=== PATIENT | male | born 1990 | race Caucasian/White ===

== ENCOUNTER 2018-03-02 23:28 | Emergency (ER) | payer OTHER ==
[~2018-03-02 23:28] MED LIST: DICY-42 PO; HYDR-4309 PO
--- NOTE | 2018-03-02 23:48 | ER Report ---
History and Physical Time Seen By MD: 23:48 Hx. of Stated Complaint: PATIENT HAD AN ICD PUT IN ON THE January, PATIENT HAVING PAIN IN LEFT CHEST, INTO LEFT SHOULDER, AND LEFT ARM. PATIENT HAVING SOME SHORTNESS OF BREATH. HPI/ROS CHIEF COMPLAINT: Pain over surgical ICD site HISTORY OF PRESENT ILLNESS: This is a 27-year-old male. He had an implanted cardiac defibrillator placed on February 13. He has been having pain at the surgical site. Had been taking some oxycodone for this but is out of that pain medicine now. And felt like the pain should've improved by now. He has had a little bit of shortness of breath. Pain mainly along the central area of the chest just to the left of the sternum. Sharp in quality. Pain does go up into his shoulder. This is over the area of the recent surgery. Denies any cough or fever. No nausea or vomiting. He has found himself waking up with his arm over his head, he has been trying to make sure he does not put his arm over his head while this area heals. Occasional heart racing. ICD placed due to Brugada Syndrome. Allergies: Coded Allergies: No Known Drug Allergies (Unverified , 12/24/15) Home Meds Active Scripts Oxycodone Hcl (OXYCODONE HCL) 5 Mg Tablet, 5 MG PO Q4H Y for PAIN, #15 TAB 0 Refills Prov:ISHA HUBBARD MD 03/03/18 Discontinued Scripts Dicyclomine Hcl (BENTYL) 10 Mg Capsule, 1-2 TAB PO QID Y for crampy abdominal pain reilef, #60 CAPSULE Prov:DEANNE PURCELL DO 12/24/15 Hydrocodone Bit/Acetaminophen (NORCO 5-325 TABLET) 1 Each Tablet, 1 EACH PO Q4H Y for PAIN, #12 TAB Prov:DEANNE PURCELL DO 12/24/15 Reviewed Nurses Notes: Yes Hx Smoking: Yes Smoking Status: Former Smoker Exposure to Second Hand Smoke?: No Hx Substance Use Disorder: No Constitutional Vital Sign - Last 24 Hours 03/02/18 03/02/18 03/03/18 03/03/18 23:32 23:43 00:13 00:28 Temp 97.9 Pulse 92 93 93 94 Resp 19 21 16 11 B/P (MAP) 148/102 Pulse Ox 93 93 91 89 O2 Delivery Room Air 03/03/18 03/03/18 00:43 01:09 Pulse 91 85 Resp 20 16 B/P (MAP) 132/85 (101) Pulse Ox 91 95 O2 Delivery Room Air Physical Exam General Appearance: The patient is alert, has no immediate need for airway protection and no current signs of toxicity. [ ] Eyes: Pupils equal and round no injection. ENT: Normal oral mucosa. Moist mucous membranes. Neck: Neck is supple and non tender. Respiratory: Lungs clear to auscultation. He does have tenderness over the whole area of the left upper chest where his implantable cardiac defibrillator was placed. Cardiac: regular rate and rhythm Musculoskeletal: Tenderness with palpating the chest wall. No other musculoskeletal pain in the neck or back. Skin: Incision healing well. No fluctuant pockets or signs of abscess. DIFFERENTIAL DIAGNOSIS: After history and physical exam differential diagnosis was considered for pain after having ICD placed. This appears postsurgical and musculoskeletal but will check for signs of infection, electrolyte abnormality, and change in or possible problem with placement of the AICD. Medical Decision Making Data Points Result Diagram: 03/02/18 2339 03/02/18 2339 Laboratory Hematology Test 03/02/18 23:39 03/02/18 23:59 Red Blood Count 5.35 M/uL (4.00-5.60) Mean Corpuscular Volume 87.6 fL (80.0-96.0) Mean Corpuscular Hemoglobin 31.8 pg (26.0-33.0) Mean Corpuscular Hemoglobin Concent 36.3 g/dL (32.0-36.0) Red Cell Distribution Width 12.5 % (11.5-14.5) Mean Platelet Volume 10.0 fL (7.2-11.1) Neutrophils (%) (Auto) 47.1 % (39.4-72.5) Lymphocytes (%) (Auto) 42.8 % (17.6-49.6) Monocytes (%) (Auto) 8.5 % (4.1-12.4) Eosinophils (%) (Auto) 1.2 % (0.4-6.7) Basophils (%) (Auto) 0.4 % (0.3-1.4) Nucleated RBC Relative Count (auto) 0.1 /100WBC Neutrophils # (Auto) 4.9 K/uL (2.0-7.4) Lymphocytes # (Auto) 4.5 K/uL (1.3-3.6) Monocytes # (Auto) 0.9 K/uL (0.3-1.0) Eosinophils # (Auto) 0.1 K/uL (0.0-0.5) Basophils # (Auto) 0.0 K/uL (0.0-0.1) Nucleated RBC Absolute Count (auto) 0.01 K/uL Sodium Level 139 mmol/L (137-145) Potassium Level 3.5 mmol/L (3.5-5.0) Chloride Level 98 mmol/L (98-107) Carbon Dioxide Level 29 mmol/L (22-30) Blood Urea Nitrogen 14 mg/dl (9-21) Creatinine 0.70 mg/dl (0.66-1.25) Glomerular Filtration Rate Calc > 60.0 Random Glucose 108 mg/dl (75-110) Calcium Level 9.2 mg/dl (8.4-10.2) Total Bilirubin 0.6 mg/dl (0.2-1.3) Aspartate Amino Transf (AST/SGOT) 37 U/L (0-35) Alanine Aminotransferase (ALT/SGPT) 48 U/L (0-56) Alkaline Phosphatase 92 U/L (0-126) Total Protein 7.7 g/dl (6.3-8.2) Albumin 4.7 g/dl (3.5-5.0) Troponin I < 0.012 ng/ml Chemistry Test 03/02/18 23:39 03/02/18 23:59 White Blood Count 10.4 k/uL (4.5-11.0) Red Blood Count 5.35 M/uL (4.00-5.60) Hemoglobin 17.0 g/dL (14.0-18.0) Hematocrit 46.8 % (42.0-52.0) Mean Corpuscular Volume 87.6 fL (80.0-96.0) Mean Corpuscular Hemoglobin 31.8 pg (26.0-33.0) Mean Corpuscular Hemoglobin Concent 36.3 g/dL (32.0-36.0) Red Cell Distribution Width 12.5 % (11.5-14.5) Platelet Count 175 K/uL (150-450) Mean Platelet Volume 10.0 fL (7.2-11.1) Neutrophils (%) (Auto) 47.1 % (39.4-72.5) Lymphocytes (%) (Auto) 42.8 % (17.6-49.6) Monocytes (%) (Auto) 8.5 % (4.1-12.4) Eosinophils (%) (Auto) 1.2 % (0.4-6.7) Basophils (%) (Auto) 0.4 % (0.3-1.4) Nucleated RBC Relative Count (auto) 0.1 /100WBC Neutrophils # (Auto) 4.9 K/uL (2.0-7.4) Lymphocytes # (Auto) 4.5 K/uL (1.3-3.6) Monocytes # (Auto) 0.9 K/uL (0.3-1.0) Eosinophils # (Auto) 0.1 K/uL (0.0-0.5) Basophils # (Auto) 0.0 K/uL (0.0-0.1) Nucleated RBC Absolute Count (auto) 0.01 K/uL Glomerular Filtration Rate Calc > 60.0 Calcium Level 9.2 mg/dl (8.4-10.2) Total Bilirubin 0.6 mg/dl (0.2-1.3) Aspartate Amino Transf (AST/SGOT) 37 U/L (0-35) Alanine Aminotransferase (ALT/SGPT) 48 U/L (0-56) Alkaline Phosphatase 92 U/L (0-126) Total Protein 7.7 g/dl (6.3-8.2) Albumin 4.7 g/dl (3.5-5.0) Troponin I < 0.012 ng/ml EKG/Imaging EKG Interpretation 12 lead EKG: Rhythm: normal sinus rhythm, rate 93 [place]: normal QRS: normal ST segments: normal I do not see any changes consistent with Brugada at this time on his EKG Imaging CHEST PA AND LAT HISTORY: Left-sided chest pain. Recent ICD placement. COMPARISON: None. TECHNIQUE: PA and lateral views of the chest. FINDINGS: Tubes/lines/hardware: ICD generator projects at the left mid to upper chest, and single lead terminates in the right ventricle. Pulmonary: Lungs are clear. There is no pneumothorax or pleural effusion. Cardiomediastinal: Cardiac and mediastinal silhouettes are within normal limits. Bones/soft tissues: No acute osseous abnormality. The visible abdomen is normal. IMPRESSION: 1. No acute cardiopulmonary process. 2. ICD has an unremarkable appearance. Report Dictated By: Henna Harrington at 03/03/2018 12:29 AM ED Course/Re-evaluation ED Course Slight improvement with oxycodone 10 mg immediate release tablets. No problems noted on labs, EKG or chest x-ray. Recommended that the patient follow-up with his surgeon/delivery manager. We'll provide some oxycodone to use for pain over the weekend. Decision to Disposition Date: Mar 03, 2018 Decision to Disposition Time: 00:59 Depart Departure Latest Vital Signs Vital Signs Date Time Temp Pulse Resp B/P (MAP) Pulse Ox O2 Delivery O2 Flow Rate FiO2 03/03/18 01:09 85 16 132/85 (101) 95 Room Air 03/02/18 23:32 97.9 Impression: Primary Impression: Chest wall pain following surgery Condition: Improved Disposition: HOME OR SELF-CARE New Scripts Oxycodone Hcl (OXYCODONE HCL) 5 Mg Tablet 5 MG PO Q4H Y for PAIN, #15 TAB 0 Refills Prov: ISHA HUBBARD MD 03/03/18 Patient Instructions: Chest Wall Pain (ED) Additional Instructions: No problems were noted on evaluation tonight. We suspect that the pain is from the chest wall from the surgery and healing process. Take Oxycodone 5mg tablets, one every 4hours as needed for pain. ISHA HUBBARD MD Mar 02, 2018 23:48
--- NOTE | 2018-03-02 23:52 | EKG ---
FACILITY: PATIENT NAME: EL BRODY : [id number] MR: [id number] V: [id number] EXAM DATE: ORDERING PHYSICIAN: ISHA HUBBARD TECHNOLOGIST: YONNY Chandra Reason : CHEST PAIN Blood Pressure : / mmHG Vent. Rate : 093 BPM Atrial Rate : 093 BPM P-R Int : 182 ms QRS Dur : 108 ms QT Int : 352 ms P-R-T Axes : 069 066 061 degrees QTc Int : 437 ms Normal sinus rhythm Normal ECG No previous ECGs available Confirmed by WHITNEY BURR ([id number]) on 03/03/2018 1:02:57 AM Referred By: Confirmed By:WHITNEY BURR
[2018-03-03] LABS: PLATELET COUNT, AUTOMATED 175 K/uL (150-450)
--- NOTE | 2018-03-03 00:35 | RADIOLOGY IMAGING REPORT ---
FACILITY: PATIENT NAME: Eliezer Thorne : 1990 MR: [id number] V: [id number] EXAM DATE: [id number] ORDERING PHYSICIAN: ISHA HUBBARD TECHNOLOGIST: Location: [facility] Patient: Eliezer Thorne : 1990 Visit/Account:[id number] Date of Sevice: 03/02/2018 CHEST PA AND LAT HISTORY: Left-sided chest pain. Recent ICD placement. COMPARISON: None. TECHNIQUE: PA and lateral views of the chest. FINDINGS: Tubes/lines/hardware: ICD generator projects at the left mid to upper chest, and single lead terminat es in the right ventricle. Pulmonary: Lungs are clear. There is no pneumothorax or pleural effusion. Cardiomediastinal: Cardiac and mediastinal silhouettes are within normal limits. Bones/soft tissues: No acute osseous abnormality. The visible abdomen is normal. IMPRESSION: 1. No acute cardiopulmonary process. 2. ICD has an unremarkable appearance. Report Dictated By: Henna Harrington at 03/03/2018 12:29 AM Report E-Signed By: Henna Harrington at 03/03/2018 12:30 AM WSN:[id number]
[2018-03-03] MEDS ORDERED: oxyCODONE HCL 5 MG CAP PO ONE ×2 (01:00)
[2018-03-03] MEDS ORDERED: OXYC5TAB38 PO (01:00)
[2018-03-03 01:09] VITALS: BP 132/85
== END 2018-03-03 01:19 | disposition home or self-care (01) ==
LOC: ER 23:39
DX: R07.89 Other chest pain (principal)
CPT/HCPCS: 71046; 82040; 82247; 82310; 82374; 82435; 82565; 82947; 84075; 84132; 84155; 84295; 84450; 84460; 84484; 84520; 85025; 93005; 99284

== ENCOUNTER → 2018-08-07 | Outpatient (CLI) | payer OTHER ==
[~2018-08-07] MED LIST changes: -HYDR-4309 PO; +HYDR-653 PO; +OXYC5TAB38 PO
== END ==
LOC: US 07:02
PROVIDERS: ATTEND Internal Medicine Cardiovascular Disease
DX: I47.2 Ventricular tachycardia (principal)
CPT/HCPCS: 93306

== ENCOUNTER 2018-08-27 07:20 | Observation (INO) | payer SELFPAY ==
[~2018-08-27] VITALS: Ht 190.5 cm; Wt 105.7 kg
[2018-08-27] MEDS ORDERED: OXCA150T64 PO (07:32)
[2018-08-27] MEDS ORDERED: ARIP30TA10 PO (07:32)
[2018-08-27] MEDS ORDERED: FLUO-177 PO (07:32)
--- NOTE | 2018-08-27 07:40 | ER Report ---
History and Physical Time Seen By MD: 07:39 Hx. of Stated Complaint: nausea, black stools and some bright red bleeding since yesterday. has history of cancerous polyps removed. HPI/ROS CHIEF COMPLAINT: Nausea, abdominal pain, bright red blood per rectum HISTORY OF PRESENT ILLNESS: Patient is a 28-year-old male who resents to the emergency department for abdominal pain that began last evening along with severe nausea without emesis. And reports having black tarry stools as well as bright red blood per rectum. She has a history of "cancerous polyps removed on colonoscopy" this was done for similar presentation to today. Past medical history also significant for Brugada syndrome status post ICD placement. Patient denies any history of familial polyposis. States he was in usual state of health until last evening. Patient denies any other abdominal surgeries. As meal was yesterday. She denies fevers or chills. REVIEW OF SYSTEMS: Constitutional: No fever, no chills. Eyes: No discharge. ENT: No sore throat. Cardiovascular: No chest pain, no palpitations. Respiratory: No cough, no shortness of breath. Gastrointestinal: No abdominal pain, severe nausea and no vomiting. Bright red blood per rectum with bowel movement this morning. Genitourinary: No hematuria. Musculoskeletal: No back pain. Skin: No rashes. Neurological: No headache. Allergies: Coded Allergies: No Known Drug Allergies (Unverified , 12/24/15) Home Meds Reported Medications Oxcarbazepine (OXCARBAZEPINE) 150 Mg Tablet, 50 MG PO DAILY 08/27/18 Aripiprazole (ABILIFY) 30 Mg Tablet, 30 MG PO QDAY, #10 TAB 08/27/18 Fluoxetine Hcl (FLUOXETINE HCL) 20 Mg Capsule, 150 MG PO QDAY, CAPSULE 08/27/18 Discontinued Scripts Oxycodone Hcl (OXYCODONE HCL) 5 Mg Tablet, 5 MG PO Q4H PRN for PAIN, #15 TAB 0 Refills Prov:ISHA HUBBARD MD 03/03/18 Past Medical/Surgical History History of forgot a syndrome, history of cancerous polyps status post removal which was done in [place]. Hx Smoking: Yes Smoking Status: Former Smoker Exposure to Second Hand Smoke?: No Hx Substance Use Disorder: No Constitutional Vital Sign - Last 24 Hours 08/27/18 08/27/18 08/27/1808/27/19 07:24 07:24 07:30 07:40 Temp 97.4 Pulse 120 112 Resp 18 15 B/P (MAP) 125/93 125/93 (104) 132/86 (101) Pulse Ox 90 91 O2 Delivery Room Air 08/27/18 08/27/18 08/27/18 08:00 08:20 08:20 Pulse 91 92 Resp 11 13 B/P (MAP) 118/72 (87) Pulse Ox 95 96 O2 Flow Rate 2.0 Physical Exam General/Constitutional: Patient is awake, alert, in no acute respiratory distress. Patient somewhat pale and ill-appearing Head: Normocephalic and atraumatic. Eyes: Conjunctival clear, Pupils are equal and reactive to light. Extraocular muscles are intact and symmetrical. Sclera are clear and anicteric. Ears:External canals are clear. Tympanic membranes are clear with normal landmarks and light reflex. Nares: No rhinorrhea or bleeding. Turbinates are pink and moist. Oropharyngeal: Mucous membranes are moist. There is no pharyngeal erythema or exudate. There are no palatal petechiae. Uvula is midline and symmetrical. Neck: Supple, no adenopathy. Cardiovascular: Heart is regular rate and rhythm without audible murmurs, rubs or gallops. Pulmonary: Lungs are clear to auscultation bilaterally. There are no wheezes, rales, or rhonchi. Chest rise is symmetrical Abdomen: Lower abdominal pain without guarding or rebound tenderness. Extremities: No gross deformities, No peripheral cyanosis. Able to move all 4 extremities. Neuro: Alert and oriented X3, Skin: No rashes, skin is warm dry and well perfused. Medical Decision Making Data Points Result Diagram: 08/27/18 0800 08/27/18 0800 Laboratory Hematology Test 08/27/18 08:00 Red Blood Count 5.22 M/uL (4.00-5.60) Mean Corpuscular Volume 90.8 fL (80.0-96.0) Mean Corpuscular Hemoglobin 31.1 pg (26.0-33.0) Mean Corpuscular Hemoglobin Concent 34.2 g/dL (32.0-36.0) Red Cell Distribution Width 13.3 % (11.5-14.5) Mean Platelet Volume 9.9 fL (7.2-11.1) Neutrophils (%) (Auto) 86.6 % (39.4-72.5) Lymphocytes (%) (Auto) 8.5 % (17.6-49.6) Monocytes (%) (Auto) 4.1 % (4.1-12.4) Eosinophils (%) (Auto) 0.4 % (0.4-6.7) Basophils (%) (Auto) 0.4 % (0.3-1.4) Nucleated RBC Relative Count (auto) 0.0 /100WBC Neutrophils # (Auto) 9.1 K/uL (2.0-7.4) Lymphocytes # (Auto) 0.9 K/uL (1.3-3.6) Monocytes # (Auto) 0.4 K/uL (0.3-1.0) Eosinophils # (Auto) 0.0 K/uL (0.0-0.5) Basophils # (Auto) 0.0 K/uL (0.0-0.1) Nucleated RBC Absolute Count (auto) 0.00 K/uL Prothrombin Time 13.4 seconds (12.0-14.4) Prothromb Time International Ratio 1.02 Activated Partial Thromboplast Time 31 seconds (23-35) Sodium Level 138 mmol/L (137-145) Potassium Level 4.1 mmol/L (3.5-5.0) Chloride Level 108 mmol/L (98-107) Carbon Dioxide Level 25 mmol/L (22-30) Blood Urea Nitrogen 14 mg/dl (9-21) Creatinine 0.80 mg/dl (0.66-1.25) Glomerular Filtration Rate Calc > 60.0 Random Glucose 123 mg/dl (75-110) Calcium Level 9.2 mg/dl (8.4-10.2) Total Bilirubin 1.2 mg/dl (0.2-1.3) Aspartate Amino Transf (AST/SGOT) 34 U/L (0-35) Alanine Aminotransferase (ALT/SGPT) 50 U/L (0-56) Alkaline Phosphatase 110 U/L (0-126) Total Protein 7.2 g/dl (6.3-8.2) Albumin 4.4 g/dl (3.5-5.0) Lipase 29 U/L (23-300) Chemistry Test 08/27/18 08:00 White Blood Count 10.5 k/uL (4.5-11.0) Red Blood Count 5.22 M/uL (4.00-5.60) Hemoglobin 16.2 g/dL (14.0-18.0) Hematocrit 47.4 % (42.0-52.0) Mean Corpuscular Volume 90.8 fL (80.0-96.0) Mean Corpuscular Hemoglobin 31.1 pg (26.0-33.0) Mean Corpuscular Hemoglobin Concent 34.2 g/dL (32.0-36.0) Red Cell Distribution Width 13.3 % (11.5-14.5) Platelet Count 145 K/uL (150-450) Mean Platelet Volume 9.9 fL (7.2-11.1) Neutrophils (%) (Auto) 86.6 % (39.4-72.5) Lymphocytes (%) (Auto) 8.5 % (17.6-49.6) Monocytes (%) (Auto) 4.1 % (4.1-12.4) Eosinophils (%) (Auto) 0.4 % (0.4-6.7) Basophils (%) (Auto) 0.4 % (0.3-1.4) Nucleated RBC Relative Count (auto) 0.0 /100WBC Neutrophils # (Auto) 9.1 K/uL (2.0-7.4) Lymphocytes # (Auto) 0.9 K/uL (1.3-3.6) Monocytes # (Auto) 0.4 K/uL (0.3-1.0) Eosinophils # (Auto) 0.0 K/uL (0.0-0.5) Basophils # (Auto) 0.0 K/uL (0.0-0.1) Nucleated RBC Absolute Count (auto) 0.00 K/uL Prothrombin Time 13.4 seconds (12.0-14.4) Prothromb Time International Ratio 1.02 Activated Partial Thromboplast Time 31 seconds (23-35) Glomerular Filtration Rate Calc > 60.0 Calcium Level 9.2 mg/dl (8.4-10.2) Total Bilirubin 1.2 mg/dl (0.2-1.3) Aspartate Amino Transf (AST/SGOT) 34 U/L (0-35) Alanine Aminotransferase (ALT/SGPT) 50 U/L (0-56) Alkaline Phosphatase 110 U/L (0-126) Total Protein 7.2 g/dl (6.3-8.2) Albumin 4.4 g/dl (3.5-5.0) Lipase 29 U/L (23-300) Coagulation Test 08/27/18 08:00 Prothrombin Time 13.4 seconds Prothromb Time International Ratio 1.02 Activated Partial Thromboplast Time 31 seconds EKG/Imaging Imaging FACILITY: [facility] PATIENT NAME: Eliezer Thorne : 1990 MR: [id number] V: [id number] EXAM DATE: [id number] ORDERING PHYSICIAN: SUSAN FARFAN TECHNOLOGIST: Location: [facility] [place] Patient: Eliezer Thorne : 1990 Visit/Account:[id number] Date of Sevice: 08/27/2018 CT ABDOMEN PELVIS W/ CON HISTORY: Abdominal pain and blood in stool. History of colonic polyps. TECHNIQUE: CT abdomen and pelvis with intravenous contrast. One of the following dose optimization techniques was utilized in the performa nce of this exam: Automated exposure control; adjustment of the mA and/or kV according to the patient's size; or use of an iterative reconstruction technique. Specific details can be referenced in the facility's radiology CT exam operational policy. CONTRAST: 75 mL Isovue-370 IV COMPARISON: 12/17/2015 FINDINGS: Visualized lung bases: Transvenous cardiac pacing lead within right heart. Hepatobiliary: Negative. Spleen: Negative. Adrenals: Negative. Pancreas: Negative. Kidneys/: Too small to characterize low attenuating lesion upper pole right kidney, likely cyst. GI: No obstruction, wall thickening or surrounding inflammation. Appendix well- visualized and appears normal. Vessels/spaces/nodes: Mild fat stranding and borderline adenopathy along the mesenteric root. These changes are slightly more notable than on prior exam and although they abut the pancreatic uncinate, they do not appear epicentered there. Most likely considerations include mesenteric panniculitis/sclerosing mesenteritis right is, less likely pancreatitis however correlation with lipase is suggested. No free fluid. No bulky adenopathy. No free gas. Bones/soft tissues: Very small fat-containing umbilical hernia. IMPRESSION: 1. 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 As the fat st randing does abut the pancreatic uncinate, correlation with patient's lipase is suggested to exclude any findings of concern for acute pancreatitis. This is, however, considered unlikely. 2. Otherwise unremarkable CT abdomen/pelvis without findings identified to explain patient's reported symptoms. Report Dictated By: Fito Lott MD at 08/27/2018 8:58 AM Report E-Signed By: Fito Lott MD at 08/27/2018 9:35 AM WSN:[id number] ED Course/Re-evaluation Clinical Indication for ER IV: IV Access ED Course 08/27/2018 7:51:20 am patient with history of cancerous polyps. Now with the GI bleeding. Plan at this time will be CT scan of the abdomen and pelvis we will type and screen check CBC CMP lipase. We'll also check coagulation panel. 08/27/2018 8:58:20 am nausea and pain of returned. Awaiting results of imaging study hemoglobin is 16 mg/dl however I do feel the patient is having significant GI bleed. Likely consult surgery 08/27/2018 9:21:20 am patient reports feeling better starting 2nd liter of fluid. Blood work is unremarkable. Awaiting results of CT scan 08/27/2018 10:35:[address] De La Garza regarding the patient he will come to see the patient shortly. 08/27/2018 11:02:[address] Alvarez; seen and evaluated the patient. Plan at this time will be admission for possible colonoscopy. Decision to Disposition Date: Aug 27, 2018 Decision to Disposition Time: 11:01 Depart Departure Latest Vital Signs Vital Signs Date Time Temp Pulse Resp B/P (MAP) Pulse Ox O2 Delivery O2 Flow Rate FiO2 08/27/18 08:20 92 13 118/72 (87) 96 08/27/18 08:20 2.0 08/27/18 07:24 97.4 Room Air Impression: Primary Impression: GI bleed Condition: Condition Unchanged Disposition: Admitted from ER (to Dr Alvarez) Problem Qualifiers Primary Impression: GI bleed GI bleed type/associated pathology: unspecified gastrointestinal hemorrhage type Qualified Codes: K92.2 - Gastrointestinal hemorrhage, unspecified SUSAN FARFAN MD Aug 27, 2018 07:39
[2018-08-27] MEDS ORDERED: MORPHINE 4 MG/ML SDV IVP ONE ×2 (07:45→09:00)
[2018-08-27] MEDS ORDERED: ONDANSETRON 4 MG/2 ML VIAL IVP ONE ×2 (07:45→09:00)
[2018-08-27] MEDS ORDERED: NS(*) 0.9% 1000 ML BAG 1,000 ML IV ONE ×2 (07:45→09:15)
--- NOTE | 2018-08-27 07:58 | EKG ---
FACILITY: [facility] - [place] PATIENT NAME: EL BRODY : [id number] MR: [id number] V: [id number] EXAM DATE: ORDERING PHYSICIAN: SUSAN FARFAN TECHNOLOGIST: Test Reason : pacemaker Blood Pressure : / mmHG Vent. Rate : 099 BPM Atrial Rate : 099 BPM P-R Int : 168 ms QRS Dur : 106 ms QT Int : 326 ms P-R-T Axes : 066 053 044 degrees QTc Int : 418 ms Normal sinus rhythm Normal ECG When compared with ECG of 02-MAR-2018 23:41, No significant change was found Confirmed by DWIGHT LOPEZ ([id number]) on 08/27/2018 9:35:59 AM Referred By: Confirmed By:DWIGHT LOPEZ
[2018-08-27 08:11] LABS: PLATELET COUNT, AUTOMATED 145 K/uL (150-450)
[2018-08-27 08:20] LABS: INR 1.02
--- NOTE | 2018-08-27 09:39 | RADIOLOGY IMAGING REPORT ---
FACILITY: [facility] [place] PATIENT NAME: Eliezer Thorne : 1990 MR: [id number] V: [id number] EXAM DATE: ORDERING PHYSICIAN: SUSAN FARFAN TECHNOLOGIST: Location: [facility] Patient: Eliezer Thorne : 1990 Visit/Account:[id number] Date of Sevice: 08/27/2018 CT ABDOMEN PELVIS W/ CON HISTORY: Abdominal pain and blood in stool. History of colonic polyps. TECHNIQUE: CT abdomen and pelvis with intravenous contrast. One of the following dose optimization techniques was utilized in the performance of this exam: Autom ated exposure control; adjustment of the mA and/or kV according to the patient's size; or use of an i terative reconstruction technique. Specific details can be referenced in the facility's radiology C T exam operational policy. CONTRAST: 75 mL Isovue-370 IV COMPARISON: 12/17/2015 FINDINGS: Visualized lung bases: Transvenous cardiac pacing lead within right heart. Hepatobiliary: Negative. Spleen: Negative. Adrenals: Negative. Pancreas: Negative. Kidneys/: Too small to characterize low attenuating lesion upper pole right kidney, likely cyst. GI: No obstruction, wall thickening or surrounding inflammation. Appendix well-visualized and appear s normal. Vessels/spaces/nodes: Mild fat stranding and borderline adenopathy along the mesenteric root. These changes are slightly more notable than on prior exam and although they abut the pancreatic uncinate, they do not appear epicentered there. Most likely considerations include mesenteric panniculitis/scle rosing mesenteritis right is, less likely pancreatitis however correlation with lipase is suggested. No free fluid. No bulky adenopathy. No free gas. Bones/soft tissues: Very small fat-containing umbilical hernia. IMPRESSION: 1. 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 As the fat stranding does abut the pancreatic uncinate, correl ation with patient's lipase is suggested to exclude any findings of concern for acute pancreatitis. T his is, however, considered unlikely. 2. Otherwise unremarkable CT abdomen/pelvis without findings identified to explain patient's reported symptoms. Report Dictated By: Fito Lott MD at 08/27/2018 8:58 AM Report E-Signed By: Fito Lott MD at 08/27/2018 9:35 AM WSN:[id number]
[2018-08-27] MEDS ORDERED: FLUSH 10 ML SYR IVP PRN (11:00)
[2018-08-27] MEDS ORDERED: PANTOPRAZOLE SOD(*)40 MG VIAL 80 MG in NS(*) 0.9% 100 ML BAG 100 ML IVPB ONE (11:12)
[2018-08-27 11:37] VITALS: BP 116/63
[2018-08-27] MEDS ORDERED: PANTOPRAZOLE SOD(*)40 MG VIAL 80 MG in NS(*) 0.9% 100 ML BAG 100 ML IV SCH (11:45)
[2018-08-27] MEDS: NS(*) 0.9% 1000 ML BAG 1,000 ML IV PRN (11:51)
[2018-08-27] MEDS: MORPHINE 2 MG/ML SYR IVP PRN ×5 (12:00→22:28)
[2018-08-27] MEDS ORDERED: PEG (High)/E-LYTE SOLN 4000 ML PO ONE (12:00)
--- NOTE | 2018-08-27 12:17 | Gen Surgery History & Physical ---
History of Present Illness Chief Complaint Abdominal pain, nausea, blood per rectum History of Present Illness 28-year-old gentleman presents with a one-day history of nausea, abdominal pain, and blood per rectum. He has had GI symptoms on and off for several years but has been relatively symptom-free over the last 6-8 months. Yesterday, he had a small bowel movement that contained a small amount of bright red blood but then today had a larger bowel movement which contained maroon, dark-colored stool with clots of blood and a fairly large volume. He is also had some abdominal pain in a bandlike distribution across his lower abdomen. He is also had nausea but no emesis. He does have a history of colon polyps. His 1st colonoscopy was approximately 5 years ago after he developed similar symptoms as is present complaints and he was found to have polyps which according to him or cancerous although he's never had any surgical resection. He then developed symptoms once again a couple of years after his 1st colonoscopy in another colonoscopy was completed which also revealed polyps. He was then instructed to have another colonoscopy 2 years later and this was completed a year ago where only a hemorrhoid was found and this was banded. He, to his knowledge, has never undergone genetic testing or has been told that he has a polyposis syndrome. He has no known family history of colon or rectal cancer. Currently, he's feeling a little better but he has just recently received morphine and Zofran. In total, and the last 24 hours, he's had 2 bowel movements, a small 1 yesterday and a larger one this morning. He had an ICD placed a year ago for Brugada syndrome but he reports that he has never had to be defibrillated. History Problems: (1) Brugada syndrome Status: Chronic (2) ICD (implantable cardioverter-defibrillator) in place Status: Chronic Home Meds Reported Medications Oxcarbazepine (OXCARBAZEPINE) 150 Mg Tablet, 50 MG PO DAILY 08/27/18 Aripiprazole (ABILIFY) 30 Mg Tablet, 30 MG PO QDAY, #10 TAB 08/27/18 Fluoxetine Hcl (FLUOXETINE HCL) 20 Mg Capsule, 150 MG PO QDAY, CAPSULE 08/27/18 Discontinued Scripts Oxycodone Hcl (OXYCODONE HCL) 5 Mg Tablet, 5 MG PO Q4H PRN for PAIN, #15 TAB 0 Refills Prov:ISHA HUBBARD MD 03/03/18 Allergies: Coded Allergies: No Known Drug Allergies (Unverified , 12/24/15) Patient History: FH: cancer MOTHER BROTHER OR SISTER FH: heart disease grandfather Review of Systems All Systems Reviewed/Normal: Yes, Except as Noted Gastrointestinal: Nausea, Hematochezia, Melena, Abdominal Pain Exam General Appearance: Alert, Awake, No Acute Distress, Afebrile Neuro: No Gross deficits Eyes: PERRLA GI: Other (soft, mild diffuse lower abdominal tenderness to palpation, no palpable mass or bulge.) Extremities: Warm, Perfused Psych: Alert & Oriented X3, Appropriate Mood & Affect Medical Decision Making Data Points Result Diagram: 08/27/18 0800 08/27/18 0800 Assessment and Plan Problems: (1) Melena Status: Acute Assessment & Plan: 08/27/2018: I have reviewed this patient's chart including his labs and imaging. I do not see any evidence that he is actively bleeding as he has only had 2 bowel movements, one of them small, in the last 24 hours. It is concerning, based on his history of colon polyps, that he now has recurring bleeding. I have discussed with him admitting him for further evaluation versus pursuing outpatient workup and he would like to be admitted for more acute workup. We'll go ahead and admit him, place on a clear diet today, start bowel prep, and plan on EGD and colonoscopy tomorrow. We'll follow his H&H and his rectal bleeding. We'll start him on PPI therapy to treat potential PUD. Will work on getting records from his previous colonoscopies and pathology results. If he is truly had numerous polyps removed as he claims then he may have a polyposis syndrome and may benefit from genetic testing. The mesenteric findings on CT seem to be chronic but we'll follow his abdominal pain. He doesn't really have epigastric pain and no other signs of pancreatitis but we will follow this during this admission. I have explained this plan with him in great detail and he seems to understand and seems agreeable with this plan. (2) Bright red blood per rectum Status: Acute (3) Abdominal pain Status: Acute (4) Nausea Status: Acute Condition Stable Time Spent: < 30 min Venous Thromboembolism VTE Risk Physician Assess for VTE Risk: Yes Patient's VTE Risk: Low VTE Diagnostic Test 2 Days Prior to Admit: No Antithrombotics Is Pt On Any Antithrombotics?: No Problem Qualifiers (1) Abdominal pain: Abdominal location: lower abdomen, unspecified Qualified Codes: R10.30 - Lower abdominal pain, unspecified DWIGHT ALLISON MD Aug 27, 2018 12:17
[2018-08-27] MEDS: PANTOPRAZOLE SOD(*)40 MG VIAL 80 MG in NS(*) 0.9% 100 ML BAG 100 ML IV SCH ×2 (12:57→22:28)
--- NOTE | 2018-08-27 13:10 | NUR ---
medical release form for colonoscopy, endoscopy & pathology records faxed to [facility], [facility] & [facility]
[2018-08-27 15:46] VITALS: BP 119/73
[2018-08-27 18:33] VITALS: BP 124/69
[2018-08-27] MEDS: ONDANSETRON 4 MG/2 ML VIAL IVP PRN (19:59)
[2018-08-27 22:31] VITALS: BP 120/63
[2018-08-28] MEDS: NS(*) 0.9% 1000 ML BAG 1,000 ML IV PRN ×2 (03:23→17:33)
[2018-08-28] MEDS: MORPHINE 2 MG/ML SYR IVP PRN ×7 (03:23→21:18)
[2018-08-28] MEDS ORDERED: NORMOSOL R SOLN(*) 1000 ML BAG 1,000 ML IV PRN (07:45)
--- NOTE | 2018-08-28 08:05 | General Surgery Progress Note ---
Subjective Progress Notes Subjective C/O mild intermittent diffuse abdominal pain. No abdominal pain. Feels like he's cleaned out after bowel prep. Physical Exam Vital Signs Date Time Temp Pulse Resp B/P (MAP) Pulse Ox O2 Delivery O2 Flow Rate FiO2 08/28/18 02:18 60 16 96 Nasal Cannula 1.0 08/27/18 22:31 120/63 (82) 08/27/18 18:33 98.3 Intake and Output 08/28/18 07:00 Intake Total 3314 ml Balance 3314 ml Intake Oral 114 ml IV Total 3200 ml # Voids 4 # Bowel Movements 3 General Appearance: Alert, Awake, No Acute Distress, Afebrile GI: Other (Soft, mild diffuse TTP, no distension.) Extremities: Warm, Perfused Result Diagram: 08/27/18 1713 08/27/18 0800 Assessment and Plan Problems: (1) Melena Status: Acute Assessment & Plan: 08/27/2018: I have reviewed this patient's chart including his labs and imaging. I do not see any evidence that he is actively bleeding as he has only had 2 bowel movements, one of them small, in the last 24 hours. It is concerning, based on his history of colon polyps, that he now has recurring bleeding. I have discussed with him admitting him for further evaluation versus pursuing outpatient workup and he would like to be admitted for more acute workup. We'll go ahead and admit him, place on a clear diet today, start bowel prep, and plan on EGD and colonoscopy tomorrow. We'll follow his H&H and his rectal bleeding. We'll start him on PPI therapy to treat potential PUD. Will work on getting records from his previous colonoscopies and pathology results. If he is truly had numerous polyps removed as he claims then he may have a polyposis syndrome and may benefit from genetic testing. The mesenteric findings on CT seem to be chronic but we'll follow his abdominal pain. He doesn't really have epigastric pain and no other signs of pancreatitis but we will follow this during this admission. I have explained this plan with him in great detail and he seems to understand and seems agreeable with this plan. 08/28/18: Unable to draw blood for labs this morning. VSS. Afebrile. O/W doing well. 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 No further blood per rectum. Will plan on EGD and colonoscopy later today. Pt agreeable with plan. (2) Bright red blood per rectum Status: Acute (3) Abdominal pain Status: Acute (4) Nausea Status: Acute Condition Stable. Time Spent: < 30 min Exam Sepsis Risk: No Definite Risk Problem Qualifiers (1) Abdominal pain: Abdominal location: lower abdomen, unspecified Qualified Codes: R10.30 - Lower abdominal pain, unspecified DWIGHT ALLISON MD Aug 28, 2018 08:05
[2018-08-28 08:32] VITALS: BP 132/75
[2018-08-28] MEDS: PANTOPRAZOLE SOD(*)40 MG VIAL 80 MG in NS(*) 0.9% 100 ML BAG 100 ML IV SCH (08:37)
[2018-08-28 11:04] VITALS: BP 124/71
[2018-08-28 15:06] VITALS: BP 131/75
[2018-08-28] MEDS ORDERED: PROPOFOL EMUL(*) 10MG/ML 20 ML 40 ML ONE (16:32)
[2018-08-28 20:05] VITALS: BP 152/86
[2018-08-28] MEDS: ONDANSETRON 4 MG/2 ML VIAL IVP PRN (21:23)
[2018-08-29] VITALS (7 sets, daily range): BP systolic 107–135; BP diastolic 59–79
[2018-08-29] MEDS: MORPHINE 2 MG/ML SYR IVP PRN ×2 (00:07→06:09)
[2018-08-29] MEDS ORDERED: KCL/D1/2NS 20 MEQ 1000 ML 1,000 ML IV SCH (07:15)
--- NOTE | 2018-08-29 07:19 | General Surgery Progress Note ---
Subjective Progress Notes Subjective Continued low abdominal discomfort (chronic). No other complaints today. Physical Exam Vital Signs Date Time Temp Pulse Resp B/P (MAP) Pulse Ox O2 Delivery O2 Flow Rate FiO2 08/29/18 06:03 61 16 121/79 (93) 97 Nasal Cannula 1.0 08/28/18 20:05 97.9 Intake and Output 08/29/18 07:00 Intake Total 1560 ml Balance 1560 ml IV Total 1560 ml # Voids 2 General Appearance: Alert, Awake, No Acute Distress, Afebrile GI: Other (Soft, mild lower abdominal TTP) Extremities: Warm, Perfused Result Diagram: 08/27/18 1713 08/27/18 0800 Assessment and Plan Problems: (1) Melena Status: Acute Assessment & Plan: 08/27/2018: I have reviewed this patient's chart including his labs and imaging. I do not see any evidence that he is actively bleeding as he has only had 2 bowel movements, one of them small, in the last 24 hours. It is concerning, based on his history of colon polyps, that he now has recurring bleeding. I have discussed with him admitting him for further evaluation versus pursuing outpatient workup and he would like to be admitted for more acute workup. We'll go ahead and admit him, place on a clear diet today, start bowel prep, and plan on EGD and colonoscopy tomorrow. We'll follow his H&H and his rectal bleeding. We'll start him on PPI therapy to treat potential PUD. Will work on getting records from his previous colonoscopies and pathology results. If he is truly had numerous polyps removed as he claims then he may have a polyposis syndrome and may benefit from genetic testing. The mesenteric findings on CT seem to be chronic but we'll follow his abdominal pain. He doesn't really have epigastric pain and no other signs of pancreatitis but we will follow this during this admission. I have explained this plan with him in great detail and he seems to understand and seems agreeable with this plan. 08/28/18: Unable to draw blood for labs this morning. VSS. Afebrile. O/W doing well. 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 No further blood per rectum. Will plan on EGD and colonoscopy later today. Pt agreeable with plan. 08/29/18: EGD unremarkable. Colonoscopy unremarkable but not a great exam due to poor prep. No signs of GI bleeding found. Will get SBFT today and then home later today if unremarkable. (2) Bright red blood per rectum Status: Acute (3) Abdominal pain Status: Acute (4) Nausea Status: Acute Condition Stable. Time Spent: < 30 min Exam Sepsis Risk: No Definite Risk Problem Qualifiers (1) Abdominal pain: Abdominal location: lower abdomen, unspecified Qualified Codes: R10.30 - Lower abdominal pain, unspecified DWIGHT ALLISON MD Aug 29, 2018 07:19
[2018-08-29] MEDS ORDERED: IBUPROFEN 200 MG TAB PO PRN (07:20)
[2018-08-29] MEDS ORDERED: ACETAMINOPHEN 325 MG TAB PO PRN (07:20)
[2018-08-29] MEDS ORDERED: BARIUM SULFATE 600 ML SUSP ONE (08:28)
--- NOTE | 2018-08-29 12:38 | RADIOLOGY IMAGING REPORT ---
FACILITY: [facility] PATIENT NAME: Eliezer Thorne : 1990 MR: [id number] V: [id number] EXAM DATE: ORDERING PHYSICIAN: DWIGHT ALLISON TECHNOLOGIST: Location: [facility] Patient: Eliezer Thorne : 1990 Visit/Account:[id number] Date of Sevice: 08/29/2018 XR SMALL BOWEL SERIES HISTORY: Abdominal pain nausea, no obstruction Small bowel follow-through. TECHNIQUE: Care Program Resident KUB demonstrates nonspecific bowel gas pattern. No obstructive change. No abnormal mass lesio ns or abnormal calcifications. Gastrografin administered. Stomach and proximal jejunal bowel loops on the immediate post ingestion film were normal in appearance. Little progression noted through 35 minutes. By one half hours Pedro rografin seen down into the ileal loops. Contrast reached the colon by 3.5 hours. No mucosal abnorm ality or mass lesion noted in the visualized small bowel loops which were normal caliber. IMPRESSION: 1. Unremarkable Gastrografin follow-through. No evidence of obstruction or obvious small bowel path ology. Transit time of 3.5 hours. Report Dictated By: Farhan Crews MD at 08/29/2018 12:31 PM Report E-Signed By: Farhan Crews MD at 08/29/2018 12:33 PM WSN:[email or web address]
--- NOTE | 2018-08-29 18:09 | Short(Outpt) Discharge Summary ---
Discharge Summary Reason for Hosp/Final Diag: (1) Melena Status: Resolved Hospital Course & Plan: 08/27/2018: I have reviewed this patient's chart including his labs and imaging. I do not see any evidence that he is actively bleeding as he has only had 2 bowel movements, one of them small, in the last 24 hours. It is concerning, based on his history of colon polyps, that he now has recurring bleeding. I have discussed with him admitting him for further evaluation versus pursuing outpatient workup and he would like to be admitted for more acute workup. We'll go ahead and admit him, place on a clear diet today, start bowel prep, and plan on EGD and colonoscopy tomorrow. We'll follow his H&H and his rectal bleeding. We'll start him on PPI therapy to treat potential PUD. Will work on getting records from his previous colonoscopies and pathology results. If he is truly had numerous polyps removed as he claims then he may have a polyposis syndrome and may benefit from genetic testing. The mesenteric findings on CT seem to be chronic but we'll follow his abdominal pain. He doesn't really have epigastric pain and no other signs of pancreatitis but we will follow this during this admission. I have explained this plan with him in great detail and he seems to understand and seems agreeable with this plan. 08/28/18: Unable to draw blood for labs this morning. VSS. Afebrile. O/W doing well. 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 No further blood per rectum. Will plan on EGD and colonoscopy later today. Pt agreeable with plan. 08/29/18: EGD unremarkable. Colonoscopy unremarkable but not a great exam due to poor prep. No signs of GI bleeding found. Will get SBFT today and then home later today if unremarkable. 08/29/18 (evening): SBFT unremarkable. Will send home with O/P F/U to continue w/u if sx persist. (2) Bright red blood per rectum Status: Resolved (3) Abdominal pain Status: Chronic Hospital Course & Plan: 08/29/18: Continue w/u as o/p. (4) Nausea Status: Resolved Departure Discharge to: Home, Self Care Discharge Instructions Home Meds Reported Medications Oxcarbazepine (OXCARBAZEPINE) 150 Mg Tablet, 50 MG PO DAILY 08/27/18 Aripiprazole (ABILIFY) 30 Mg Tablet, 30 MG PO QDAY, #10 TAB 08/27/18 Fluoxetine Hcl (FLUOXETINE HCL) 20 Mg Capsule, 150 MG PO QDAY, CAPSULE 08/27/18 Discontinued Scripts Oxycodone Hcl (OXYCODONE HCL) 5 Mg Tablet, 5 MG PO Q4H PRN for PAIN, #15 TAB 0 Refills Prov:ISHA HUBBARD MD 03/03/18 Follow up Referrals: General Surgery - 09/11/18 @ Surgery, General with DWIGHT ALLISON MD You have a follow up appointment scheduled with Dr. Allison on 09/11/18, at 9:30am. Diet: Regular Activity: As Tolerated Problem Qualifiers (1) Abdominal pain: Abdominal location: lower abdomen, unspecified Qualified Codes: R10.30 - Lower abdominal pain, unspecified DWIGHT ALLISON MD Aug 29, 2018 18:09
== END 2018-08-29 18:06 | disposition home or self-care (01) ==
LOC: ER 07:45 → MED 11:11 → INTOOBSV 11:11
PROVIDERS: ADMIT Surgery; ATTEND Surgery
DX: K92.2 Gastrointestinal hemorrhage, unspecified (principal); Z95.0 Presence of cardiac pacemaker
CPT/HCPCS: 00813; 36415; 43235; 45378; 74177; 74250; 83690; 85014; 85018; 85025; 85610; 85730; 86850; 86900; 86901; 93005; 96361; 96374; 96375; 96376; 99284; C9113; G0378; J2270; J2405; J2704; J3480; J7030; J7050; Q9967; 82040; 82247; 82310; 82374; 82435; 82565; 82947; 84075; 84132; 84155; 84295; 84450; 84460; 84520